=== PATIENT | female | born 1980 | race Caucasian/White ===

== ENCOUNTER 2021-10-28 08:30 | Outpatient (RCR) | payer MEDICAID, SELFPAY ==
--- NOTE | 2021-10-28 11:10 | BH.SGPN.GN ---
This psychotherapy group was provided via telehealth using two-way, real-time interactive telecommunication technology between the patients and the provider. The interactive telecommunication technology included audio and video. The patient was offered telemedicine as an option for care delivery during the COVID-19 pandemic and consented to this option. Patient location: [place]] Provider located at [facility] Behaviors/Verbalizations/Mental Status: [] Client alert and oriented, casually dressed and appropriately groomed. Eye contact fair. Motor activity WNL. Speech within normal limits. Affect congruent, mood anxious and dysthymic. Thoughts linear and intact. no signs of delusions or hallucinations. Client Response/Progress/Benefit: [] Client responded well to session AEB listening attentively to peers and providing some input throughout. Client contributed during psychoeducation on the different boundary styles. Client identified connects most with having rigid emotional boundaries. Participated in group discussion brainstorming various strategies for improving healthy personal boundaries. Client identified wanting to take time for self-reflection so she can rediscover her values which will help her identify most important boundaries to set. Will continue IOP tx to improve emotion regulation, increase healthy coipng skills and prevent decompensation.
--- NOTE | 2021-10-28 12:25 | PCM.BH.PSYEV ---
Psychiatric Evaluation Initial Evaluation Initial Evaluation: Chief Complaint: [] I am trying to get back on track. History of Present Illness: [] The patient is a 41-year-old female with a history of schizoaffective disorder who was referred to the [facility] behavioral health IOP program by her outpatient psychiatric providers. The patient has had worsening symptoms of depression and anxiety for the past 2 months and has been unable to hold a job and has worked 8 different jobs in the past year. The patient last worked early in August at a [employer]. The patient currently lives with her mom and dad and her 16-year-old son in a house. The patient has been for 15 years. The patient states that about a month ago she began to be overwhelmed by work responsibilities and was also very anxious. At that time she was drinking coffee in the morning but also had been drinking an occasional red bull energy drink. After her doctor told her to stop energy drinks her feeling of overwhelming anxiety lessened. She also has some brain fog that is a little better now but has been a problem for a long time. She told her provider she had attention deficit problems and was put on Focalin in early September and this caused the patient also to get severe panic attacks and increased anxiety. The Focalin was stopped but the patient remained anxious and depressed. She had some medication changes made 1 month ago and she feels that this has enabled her to be better able to accomplish her activities of daily living. 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 She says she is feeling better and is planning to start learning the mandolin soon. She admits she was self-medicating with alcohol in the past but she stopped this and has not used any alcohol since 10 days ago. She said her maximum use of alcohol was only 1 tall boy a few times a week. She had been isolating herself and described low energy and low motivation. She was depressed but she states that she is much less depressed now. She denies hopelessness, worthlessness and guilt. She has low energy level and her appetite is okay and her sleep is now okay at 8 hours a night. Her sleep was decreased prior to the medication changes made 1 month ago. Concentration remains somewhat decreased. She denies any history of self-harm. She is a worrier by nature and ruminates negatively. She has been feeling nervous and hypervigilant and does not trust most people. However she denies paranoia. She has not had any panic attacks for 3 weeks now since stopping the energy drinks and being off the Focalin. She has a history of bulimia with purging by emesis but has not done any of this for 20 years. She denies OCD, trauma, PTSD or history of self-harm. She does admit to passive thoughts of about 1 month ago but she denies any passive thoughts of since 1 month ago. She denies also suicidal ideation, plan for suicide, homicidal ideation, hallucinations or delusions. She denies outright manic episodes but says she has been irritable and some mood episodes and has had depression with psychotic features a number of times and she feels this is why she was diagnosed with schizoaffective disorder. Current Psychiatric Medications: [] Effexor XR 225 mg p.o. daily (x1 year); Lamictal 200 mg p.o. every morning and 100 mg p.o. nightly.; BuSpar 15 mg p.o. twice daily; Latuda 120 mg p.o. nightly and 20 mg p.o. every morning (dose increased from 80 mg total 1 month ago). She has been on Latuda for about 10 years total. Past Psychiatric History: [] The patient has 4 prior psychiatric admissions. The first was in 2011 and the most recent episode of her psychiatric admissions was at [facility] in 2019. She had 2 other admissions between these 2. She has 1 suicide attempt in the past in 2019 which was an overdose on trazodone. She has a psychiatric nurse practitioner and a counselor at [place] for 1 9. She was took Effexor for 7 years and then was changed to [place] for 1 year and then went back on Effexor for the past year. [place] she took in the past made her too sleepy and she did not like Paxil either. She does not remember any other meds she was on. She has a history of an eating disorder which was bulimia by purging by emesis and also restricting her food intake and her weight lowest weight was 98 pounds at 5 foot 1 inches tall and she was not diagnosed with anorexia. She has not purged at all in the past 20 years or restricted. Substance Use History: [] She has abused alcohol in the past but has never had withdrawal symptoms or felt she was addicted to alcohol. She was 5 months sober from alcohol last year and then 80 days sober from alcohol and then was self-medicating recently but stopped 10 days ago. She tried drugs in high school but no drug use since except for marijuana. She vapes marijuana daily off and on since high school but has not used any marijuana since the past few weeks when her psychiatric provider told her to stop using it. She smokes cigarettes 1-1/2 pack/day for the past 16 years. She has never been to rehab for anything. Allergies: [] No known allergies Medications: [] She is on her psych medications as dictated above plus Metformin, losartan and amlodipine Past Medical History: [] Hypertension. No other medical issues. She has had no surgeries. She is a 1 para 1 Ab0 female who has one 16-year-old son. She is not on any control as she is abstinent from sexual relations and plans to stay this way. Family Psychiatric History: [] Mother is 68 years old and father is 71 years old and father has COPD. She has a paternal second cousin with severe bipolar disorder. Otherwise no psych issues in the family and no substance abuse issues. No completed completed suicides in the family. Personal/Social History: [] The patient was born and raised in [place] and describes her childhood as okay. Her parents worked a lot but they were loving but not expressive. The patient was youngest child and has a sister 1-year-old her and her brother 6 years older than her and they were and are fairly close. School was good for her and she got good grades and did not have trouble in her classes. She had friends and participated in a lot of activities at school. She graduated high school and attended college where she got a bachelor of arts in communications. She got at age 21 and has one 16-year-old son from this marriage. The marriage lasted for years. She has had a few other serious boyfriends but is abstinent now. 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 The past year she has had a job as it has been hard for her to hold a job due to her worsening mental health symptoms but the symptoms have improved since Latuda was increased 1 month ago. However the patient states that she may be looking to get on disability since she has had so many problems holding a job in the past year. Legal History: [] No arrests. 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 No DUIs. No . Review of Systems: [] Negative except as noted in present illness. Vital Signs: [] Reviewed in nurses notes. Mental Status Examination: [] The patient is a 41-year-old female who is seen by telehealth and appears mildly disheveled and with no make-up but with reasonably good hygiene. She has no psychomotor agitation or retardation. She is cooperative during the interview. Eye contact is good and speech is normal rate and rhythm and fluent with no pressure. Mood is depressed but less depressed than before. Affect is constricted. Thought process is goal-directed and organized. Thought content: There is no evidence of passive thoughts of , suicidal ideation, homicidal ideation, hallucinations, delusions or symptoms of jj. Reality testing is intact. Intelligence is average or above average. Judgment is intact. Insight is good. Impulsivity is low to moderate. Diagnoses: [] 1. Schizoaffective disorder, bipolar type 2. Generalized anxiety disorder 3. Alcohol use disorder (sober x10 days) 4. Marijuana use disorder (sober times several weeks) 5. Primary support and work issues Plan: [] The patient will start the IOP program in behavioral health at [facility] as the structure, support, education, and group therapy will hopefully prevent worsening of the patient's symptoms which might require hospitalization. She felt safe during the interview and if it anytime she does not feel safe she will let us know or go to the emergency room. The risks, options, possible complications and side effects of medications were discussed with the patient and she understands accepts these. The patient does not wish to have any medication changes made as they were changed 1 month ago and she feels that they have improved her symptoms greatly. She agrees to not use any alcohol or marijuana and to stay sober from both of these. In addition she will use very little coffee and no energy drinks ever. No medication changes were made today. The patient will continue to follow-up with her outpatient providers and I will see the patient in follow-up at the IOP program.
--- NOTE | 2021-10-28 12:39 | BH.DR.ITP ---
Initial Treatment Plan Patient Information Visit Information: ADMISSION DATE: EXPECTED LOS: 4-6 weeks Problems/Symptoms Problem #1:: Depression Symptom:: Sadness, low energy, low motivation, anhedonia, decreased concentration, history of passive thoughts of Problem #2:: Anxiety Symptom:: Worry, rumination, avoidance
--- NOTE | 2021-10-29 09:05 | BH.SGPN.GN ---
Behaviors/Verbalizations/Mental Status: [] Eye contact is good. Motor activity is appropriate. Appearance is casual. Speech is Appropriate. Mood is euthymic. Affect is full. Thoughts are linear and logical. No evidence of psychosis. Reviewed daily check in sheet and no reports of suicidal ideations or intent. Client Response/Progress/Benefit: [] Pt participated at times during group discussions. Attentive. Emotion for today is content. This was her first process group so she briefly introduced herself to the other patients. States that she joined [facility] to get on track. Difficulty staying on task lately due to her mental health. Struggling with setting and maintain goals and daily functioning. She was vague on symptomatology however did report long-standing depression and anxiety. Benefited from group support and encouragement. Will continue in [facility] to prevent decompensation, increase healthy coping skills, and improve functioning. Narrative Note: []
--- NOTE | 2021-10-29 10:00 | BH.SGPN.GN ---
Behaviors/Verbalizations/Mental Status: []This psychotherapy group was provided via telehealth using two-way, real-time interactive telecommunication technology between the clients and the provider. The interactive telecommunication technology included audio and video. The client was offered telemedicine as an option for care delivery during the COVID-19 pandemic and consented to this option. Client location: [place] Provider located at [facility] Client alert and oriented, casually dressed and groomed. Eye contact good. Motor activity appropriate. Speech within normal limits. Affect congruent, mood euthymic. Thoughts linear, logical, no signs of hallucinations or delusions. Client Response/Progress/Benefit: []Client responded well to group session AEB listening attentively to others and participating in group discussion. Group members worked together to define and provide personal examples of pitfalls. Client defined pitfalls as wanting to change but feeling like there is no way out. Provided an example of a personal pitfall as not participating in self care. Client participated in experiential activity through telehealth, providing feedback to the group and expressing her feelings as a observer. Client appeared to benefit from increased self awareness of personal pitfalls. Will continue IOP treatment to decrease rumination and increase depression management skills to improve daily functioning. Narrative Note: []
--- NOTE | 2021-10-29 11:15 | BH.SGPN.GN ---
This psychotherapy group was provided via telehealth using two-way, real-time interactive telecommunication technology between the clients and the provider. The interactive telecommunication technology included audio and video. The client was offered telemedicine as an option for care delivery during the COVID-19 pandemic and consented to this option. Client location: [place] Provider located at [facility] Behaviors/Verbalizations/Mental Status: []Client alert and oriented, disheveled appearance. Eye contact good. Motor activity appropriate. Speech within normal limits. Affect congruent, mood dysthymic. Thoughts linear, logical, no signs of hallucinations or delusions. Client Response/Progress/Benefit: []Client receptive of session, engaged throughout AEB client actively listening and contributing to discussion, as well as taking notes. Client completed worksheet identifying personal pitfalls impacting mental health progress. Client identified the following pitfalls: isolation, avoidance, and procrastination. Group learned different coping skills to help manage pitfalls. Client selected avoidance as the pitfall client wants to overcome. Client plans to work on this by setting small goals and using opposite action. Benefited from identifying personal pitfalls and strategies to overcome these pitfalls. First week of IOP tx. Will continue IOP tx to prevent decompensation, gain healthy coping skills, and improve daily functioning impaired by mental health symptoms. Narrative Note: []
--- NOTE | 2021-11-04 09:00 | BH.SGPN.GN ---
Behaviors/Verbalizations/Mental Status: []Client alert and oriented, casually dressed and groomed. Eye contact fair to good. Motor activity appropriate. Speech within normal limits. Affect congruent, mood euthymic. Thoughts linear, logical, no signs of hallucinations or delusions. Reviewed client?s symptom tracker, no risk for suicidal ideation, plan, or intent as of 11/04/21 Client Response/Progress/Benefit: []Client responded well to session, willing to share and actively listening throughout. Client reports feeling hopeful this morning, which she attributes to getting back into more consistent self-care. Discussed cooking more often and spending time with supports. Client shared she has been struggling to do things she enjoys over the past few months and is glad to be getting back into her hobbies, discussing plans to begin playing the mandolin as well. Shared current stressor as challenging self-comparison thoughts since making the decision to apply for disability. Expressed feeling like a disappointment and guilt about not working. Appeared to benefit from supportive feedback and other?s sharing similar experiences. Client progress noted in improved mood and hopefulness in her ability to make progress in tx. Will continue IOP tx to prevent decompensation, continue to promote healthy skill application, as well as increase mood stability. Narrative Note: []This psychotherapy group was provided via telehealth using two-way, real-time interactive telecommunication technology between the patients and the provider. The interactive telecommunication technology included audio and video. The patient was offered telemedicine as an option for care delivery during the COVID-19 pandemic and consented to this option. Patient location: [place] Provider located at [facility]
--- NOTE | 2021-11-04 14:44 | BH.MDN ---
Multi-Disciplinary Note - Note 30-min Individual Time Started:: 11:27 Date: 11/04/21 Purpose of session/treatment goals addressed:: The purpose of this session was to gather information on client's current stressors, symptoms, and treatment goals. Another goal was to build rapport and provide psychoeducation on cycle of depression, identifying pt?s thoughts and behavior patterns contributing to mental health sx. Eye Contact:: Good Motor Activity:: Appropriate Appearance:: Casual Speech:: Appropriate Mood:: Anxious Affect:: Congruent Thoughts:: Linear, Logical, No evidence of hallucinations/delusions noted Staff Interventions:: motivational interviewing, rapport building, treatment planning, goal setting Client Response:: Pt responded well to session, open to meeting with therapist and remained actively engaged throughout. Indicates she had been referred to [facility] services by her outpatient psychiatrist, Rylie Dan at [place] [id number], due to worsening symptoms of depression and anxiety. Pt noted she has been unable to maintain consistent employment due to her mental health sx and has held over 7 different jobs in the past year. Pt discussed often feeling others do not like her or getting overwhelmed in the work environment, resulting in quitting her job rather than addressing the sources of stress. Shared she has always avoided conflict and struggled with independent decision making as a result. 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 Noted this has been a lifelong source of stress and she has compared herself to her siblings for much of her life. Shared an additional stressor as recently making the decision to file for disability following the suggestion of her outpatient psychiatrist. Pt reports struggling with thoughts of inadequacy and feeling as though she is a failure. Acknowledges this is not rationally being true and may ultimately be the healthiest decision in terms of caring for her mental health but is struggling with acceptance. Pt and therapist discussed the cycle of depression and impact of unhealthy thoughts and coping behaviors on depressive sx. Pt able to identify her own unhealthy thought patterns reinforcing depressive sx, as well as identified avoidance, isolation, and substance use as unhealthy coping mechanisms she has used in the past. Discussed importance of thought challenging and pt receptive of homework to create a list of all the potential mental health benefits of applying for disability to remind herself of. Shared she has additional begun breaking her unhealthy coping patterns by reaching out to supports such as her niece and engaging in more activities she enjoys, reporting cooking more meals at home as an example. Additionally reports sobriety from alcohol since IOP admission. Risks/Concerns:: None noted. Pt denies SI/HI, plan, or intent as of this date. Future oriented and protective factors noted Progress Toward Goals/Plan:: Client reports improved mood and increased use of healthy coping skills since beginning IOP tx. Believes current medication has been helpful since decreasing her Focalin rx prior to admission. Discussed wanting to work towards improving her self-acceptance and willingness to actively apply health skills for managing her mental health sx. Expressed wanting to engage in more activities she enjoys and be more engaged within the home environment. Pt will continue IOP tx to reduce depression and isolation, improve self-confidence, and stabilize mood. Time Stopped:: 11:57
--- NOTE | 2021-11-04 15:13 | BH.MTP_ITS ---
Master Treatment Plan - Patient Information Program Physician:: Dr. Emily Shetty Primary Therapist:: SUNSHINE Rubio - Psychiatric Diagnoses Psychiatric Diagnoses:: 1. Schizoaffective disorder, bipolar type. 2. Generalized anxiety disorder. 3. Alcohol use disorder (sober x10 days). 4. Marijuana use disorder (sober times several weeks) Diagnosis Code(s):: F 25.0 - Estimated LOS Estimated LOS (in weeks):: 6 Problem/Goal #1 - Problem/Goal #1 Stated Goal:: Client will learn and utilize 2-3 healthy coping strategies to better manage depressive symptoms as shown by a reduced DSM-5 scores for depression. Description of Barriers: Pt is attending via telehealth and often has technical difficulties, hx of treatment ineffectiveness, reports difficulties trusting others, pt reports low motivation and energy levels which may impede willingness to follow-through with treatment goals Functional Impact: The patient is a 41-year-old female with a history of schizoaffective disorder, anxiety, and depression who was referred to the [facility] behavioral health IOP program by her outpatient psychiatric provider at [place] [address]. The patient has had worsening symptoms of depression and anxiety for the past 2 months. Reports sx have impacted her a bility to hold a job and she has worked 8 different jobs in the past year. Reports plans to file for disability which she is stressed and feels guilty about. 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 Reports at that time she was drinking coffee and energy drinks to maintain her energy and has been struggling with low energy for the past several months. Reports she has stopped energy drink use in the past month. Pt had also been placed on Focalin in early September for ADHD resulting in worsening anxiety and panic attacks, This has since been discontinued and pt reports improved symptomology. Reports she has also struggled with alcohol misuse and has given varying reports of the extent of her use; however, indicates she has not drank since 7 week prior to admission. Primary stressor at this time is pt relationship with her parents whom she is currently living with. Shared feeling she is a disappointment and unable to meet their expectations for her. Expressed this has been an ongoing source of stress throughout her life as she often compares herself to her siblings. At time of admission, pt endorsing low energy and concentration, poor motivation, loss of sense of self, isolation, depression, increased anxiety and rumination, reports hypervigilance and difficulties trusting others, guilt about filing for disability, distorted thinking patterns, and low self-confidence. Goal Relevant Strengths/Supports: Pt reports having a strong support system and reports a desire to improve her mental health. Pt has several protective factors including her son, reports hx of following through with treatment recommendations - Objectives Objective #1 Stated Objective: Client will learn and utilize 2-3 healthy coping strategies to better manage depressive symptoms as shown by a reduced DSM-5 scores for depression. Interventions: Through group and individual sessions, therapist will help client identify triggers and warning signs of depression and emotional dysregulation including emotional, physical, and behavioral changes. Therapist will teach client various coping skills to manage her symptoms and give client tangible resources to use to regulate emotions. Therapist will use cognitive restructurin g techniques and help client gain awareness of negative thoughts that reinforce guilt and depression. Therapist will provide psychoeducation on maintenance cycles and help client learn ways to break unhealthy maintenance cycles. Therapist will help client incorporate behavioral activation and assist client in setting SMART goals. Discharge Criteria: Client will have met this goal when he can report learning and using at least 2 healthy coping skills to manage depressive symptoms. Additionally, client will have met this goal when his depressive symptoms have reduced on the DSM-5 scale. Target Date: 12/09/21 Review Date: 11/25/21 Objective #2 Stated Objective: Client will reduce depression and feelings of apathy by improving engagement in activities she enjoys through accomplishing 1-2 small activity goals daily. Interventions: Through group and individual sessions, client will learn how to set small SMART goals to promote mood stability and encourage her to create daily activity goals. Therapist will teach client the different kinds of self- care as well as the benefits of self-care. Through CBT and MS interventions, therapist will help client problem-solve barriers and identify ways to increase accountability. Discharge Criteria: Client will have accomplished this goal when can report accomplishing at least one small activity goal a day. Target Date: 12/09/21 Review Date: 11/25/21 Problem/Goal #2 - Problem/Goal #2 Stated Goal:: Client will reduce anxiety causing avoidance, increased worry, and rumination while increasing ability to function on daily basis. Description of Barriers: Pt is attending via telehealth and often has technical difficulties, hx of treatment ineffectiveness, reports difficulties trusting others, pt reports low motivation and energy levels which may impede willingness to follow-through with treatment goals Functional Impact: The patient is a 41-year-old female with a history of schizoaffective disorder, anxiety, and depression who was referred to the [facility] behavioral health IOP program by her outpatient psychiatric provider at [place] [address]. The patient has had worsening symptoms of depression and anxiety for the past 2 months. Reports sx have impacted her ability to hold a job and she has worked 8 different jobs in the past year. Reports plans to file for disability which she is stressed and feels guilty about. 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 Reports at that time she was drinking coffee and energy drinks to maintain her energy and has been struggling with low energy for the past several months. Reports she has stopped energy drink use in the past month. Pt had also been placed on Focalin in early September for ADHD resulting in worsening anxiety and panic attacks, This has since been discontinued and pt reports improved symptomology. Reports she has also struggled with alcohol misuse and has given varying reports of the extent of her use; however, indicates she has not drank since 7 week prior to admission. Primary stressor at this time is pt relationship with her parents whom she is currently living with. Shared feeling she is a disappointment and unable to meet their expectations for her. Expressed this has been an ongoing source of stress throughout her life as she often compares herself to her siblings. At time of admission, pt endorsing low energy and concentration, poor motivation, loss of sense of self, isolation, depression, increased anxiety and rumination, reports hypervigilance and difficulties trusting others, guilt about filing for disability, distorted thinking patterns, and low self-confidence. Goal Relevant Strengths/Supports: Pt reports having a strong support system and reports a desire to improve her mental health. Pt has several protective factors including her son, reports hx of following through with treatment recommendations - Objectives Objective #1 Stated Objective: Client will identify 2-3 anxiety/panic triggers and 2 coping skills to use when feeling anxious to manage anxiety as shown by decreasing her DSM-5 scores for anxiety. Interventions: Therapist will provide education on anxiety, avoidance behaviors, and maintenance cycles. Therapist will help client explore personal symptoms and warning signs of anxiety. Therapist will teach client coping skills to improve emotional regulation, mindfulness, and distress tolerance to help client cope with anxiety in the moment. Discharge Criteria: Client will have accomplished this goal when she can identify at least 2 triggers and report using 2 coping skills to manage anxiety. Additionally, client will have accomplished this goal when her DSM-5 scores show a reduction in symptoms. Target Date: 12/09/21 Review Date: 11/25/21 Objective #2 Stated Objective: Client will increase social interactions and learn 2-3 strategies to improve interpersonal effectiveness skills and reduce conflict avoidance. Interventions: Therapist will use cognitive restructuring techniques and help client gain awareness of negative thoughts that reinforce avoidance behaviors and fear of judgement. Therapist will help client incorporate mindfulness, opposite action, and self-talk strategies to manage anxiety. Discharge Criteria: Pt will report reduced conflict avoidance and improved communication with supports when feeling anxious. Target Date: 12/09/21 Review Date: 11/25/21
--- NOTE | 2021-11-04 15:13 | BH.PSA ---
Source of Information - Presenting Problems/Circumstances Problems, Referral Source, Mental Status, Client: The patient is a 41-year-old female with a history of schizoaffective disorder, anxiety, and depression who was referred to the [facility] program by her outpatient psychiatric provider at [place] [address]. The patient has had worsening symptoms of depression and anxiety for the past 2 months. Reports sx have impacted her ability to hold a job and she has worked 8 different jobs in the past year. Psychiatric Presentation - Psych Issues & Need for Admission Psychiatric Issues:: Anxiety, panic, depression, mood swings, substance misuse, hx of schizoaffective disorder Past Psychiatric History - Treatment Hx Treatment History: The patient has 4 prior psychiatric admissions. The first was in 2011 and the most recent episode of her psychiatric admissions was at [facility] in 2019. She had 2 other admissions between these 2. She has 1 suicide attempt in the past in 2019 which was an overdose on trazodone. She has a psychiatric nurse practitioner and a counselor at [place] [address]. Suicide Assessment Interpretive Summary - Interpretive Summary Interpretive Summary: The patient is a 41-year-old female with a history of schizoaffective disorder, anxiety, and depression who was referred to the [facility] program by her outpatient psychiatric provider at [place] [address]. The patient has had worsening symptoms of depression and anxiety for the past 2 months. Reports sx have impacted her ability to hold a job and she has worked 8 different jobs in the past year. Reports plans to file for disability which she is stressed and feels guilty about. 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 Reports at that time she was drinking coffee and energy drinks to maintain her energy and has been struggling with low energy for the past several months. Reports she has stopped energy drink use in the past month. Pt had also been placed on Focalin in early September for ADHD resulting in worsening anxiety and panic attacks, This has since been discontinued and pt reports improved symptomology. Reports she has also struggled with alcohol misuse and has given varying reports of the extent of her use; however, indicates she has not drank since 7 week prior to admission. Primary stressor at this time is pt relationship with her parents whom she is currently living with. Shared feeling she is a disappointment and unable to meet their expectations for her. Expressed this has been an ongoing source of stress throughout her life as she often compares herself to her siblings. At time of admission, pt endorsing low energy and concentration, poor motivation, loss of sense of self, isolation, depression, increased anxiety and rumination, reports hypervigilance and difficulties trusting others, guilt about filing for disability, distorted thinking patterns, and low self-confidence. Treatment Plan Recommendations
--- NOTE | 2021-11-05 09:08 | BH.SGPN.GN ---
This psychotherapy group was provided via telehealth using two-way, real-time interactive telecommunication technology between the clients and the provider. The interactive telecommunication technology included audio and video. The client was offered telemedicine as an option for care delivery during the COVID-19 pandemic and consented to this option. Client location: [place] Provider located at [facility] Behaviors/Verbalizations/Mental Status: []Client alert and oriented, casually dressed and groomed. Eye contact fair. Motor activity appropriate. Speech within normal limits. Affect congruent, mood euthymic. Thoughts linear, logical, no signs of hallucinations or delusions. Reviewed client?s symptom tracker, no risk for suicidal ideation, plan, or intent Client Response/Progress/Benefit: []Client responded well to session, attentive to others. Client stated she a mental health win is being thankful for her individual counseling session yesterday. Client further explained she has hope after her individual session that this program can be helpful to her. Client stated she has hx of dropping out of programs because doesn't think it will help. Client reported feeling hopeful that she will continue this program and that it can benefit her. Client reported no current stressors. Progress noted with client reporting increased engagement. Seemed to benefit from support from peers. Client to continue IOP to increase healthy coping, challenge distorted thoughts and prevent decompensation.
--- NOTE | 2021-11-05 10:05 | BH.SGPN.GN ---
Behaviors/Verbalizations/Mental Status: []Client alert and oriented, casually dressed and groomed. Eye contact good. Motor activity appropriate. Speech within normal limits. Affect congruent, mood euthymic. Thoughts linear, logical, no signs of hallucinations or delusions. This psychotherapy group was provided via telehealth using two-way, real-time interactive telecommunication technology between the clients and the provider. The interactive telecommunication technology included audio and video. The client was offered telemedicine as an option for care delivery during the COVID-19 pandemic and consented to this option. Client location: [place] Provider located at [facility] Client Response/Progress/Benefit: []Client responded well to session AEB listening attentively to others. Client was a passive participant in group discussion regarding myths of self care including self care is selfish, has to be pampering, and is too expensive. Client took notes and nodded throughout group discussion of the benefits of self care and the barriers that can make practicing it difficult. Client participated in experiential activity illustrating the importance of utilizing self care remotely via telehealth. Appeared to benefit from increased knowledge of self care strategies and the importance of self care. Client?s engagement is variable which may hinder progress. Will continue IOP treatment to prevent decompensation and decrease rumination to improve daily functioning. Narrative Note: []
--- NOTE | 2021-11-05 11:16 | BH.SGPN.GN ---
Behaviors/Verbalizations/Mental Status: []Client alert and oriented, casually dressed and groomed. Eye contact good. Motor activity appropriate. Speech within normal limits., limited input provided however. Affect congruent, mood euthymic and anxious. Thoughts linear, logical, no signs of hallucinations or delusions. Client Response/Progress/Benefit: []Client engaged participant AEB taking notes and nodding throughout, limited input provided. Attentive during group discussion on the various areas of self-care and made connections with the activity. Client completed worksheet which identified current self-care practices and what self-care activities client wants to start using. Client shared currently doing well in self-care areas of psychological self-care, noting getting back into hobbies she enjoys. Client selected physical and emotional self-care as the areas of self-care client would like to improve. Noted she could do so by learning healthier emotion regulation skills and continuing to work on maintaining sobriety from alcohol. Appeared to benefit from completing the self-care evaluation and gaining insights into current self-care practices, as well as identifying areas in which she would like to improve upon. Will continue IOP tx to increase application of healthy coping skills, further improve mood stability, as well as prevent decompensation. Narrative Note: []This psychotherapy group was provided via telehealth using two-way, real-time interactive telecommunication technology between the patients and the provider. The interactive telecommunication technology included audio and video. The patient was offered telemedicine as an option for care delivery during the COVID-19 pandemic and consented to this option. Patient location: [place] Provider located at [facility]
--- NOTE | 2021-11-06 09:10 | BH.SGPN.GN ---
Behaviors/Verbalizations/Mental Status: [] Eye contact is good. Motor activity is appropriate. Appearance is casual. Speech is Appropriate. Mood is euthymic. Affect is full. Thoughts are linear and logical. No evidence of psychosis. Reviewed daily check in sheet and no reports of suicidal ideations or intent. Client Response/Progress/Benefit: [] Pt was an active participant in group discussion on managing triggers. Attentive. Provided appropriate feedback. Emotion for today is calm. Mental health wins included cooking this AM. Her goal this weekend is not to drink to cope with emotions or to escape. Shared some of her strategies and was open to feedback from peer. She reports that she is trying to be more honest with herself and others regarding her struggles and alcohol use. In the past she would often use unhealthy coping which was never beneficial. She also shared improving her social network and setting boundaries with unhealthy support. Progress noted. Will continue in IOP to prevent decompensation and increase healthy coping skills. Narrative Note: []
--- NOTE | 2021-11-06 10:15 | BH.SGPN.GN ---
This psychotherapy group was provided via telehealth using two-way, real-time interactive telecommunication technology between the clients and the provider. The interactive telecommunication technology included audio and video. The client was offered telemedicine as an option for care delivery during the COVID-19 pandemic and consented to this option. Client location: [place] Provider located at [facility] Behaviors/Verbalizations/Mental Status: []Client alert and oriented, casually dressed and groomed. Eye contact good. Motor activity appropriate. Speech within normal limits. Affect congruent, mood euthymic. Thoughts linear, logical, no signs of hallucinations or delusions. Client Response/Progress/Benefit: []Pt was an active participant in group discussion and experiential activity. Attentive during psychoeducation. Group had an interactive discussion on the benefits of emotional regulation in which pt provided insight. Group identified several benefits to emotional regulation which included; less consequences, more stable relationships, improved communication, and better ability to manage stress. Group also was able to identify how emotions can impact our communication leading to; difficulty articulating our thoughts, shutting down, not being an active listener, mind-reading, and getting defensive. Pt participated in experiential activity and reported it was challenging to overcome the communication barriers, but ?I just went with the flow.? Benefited from increased awareness into how emotions can impact one's ability to effectively communicate. Will continue IOP tx to improve overall functioning, reduce negative thinking patterns, and work towards consistent mood stability. Narrative Note: []
--- NOTE | 2021-11-06 11:15 | BH.SGPN.GN ---
This psychotherapy group was provided via telehealth using two-way, real-time interactive telecommunication technology between the clients and the provider. The interactive telecommunication technology included audio and video. The client was offered telemedicine as an option for care delivery during the COVID-19 pandemic and consented to this option. Client location: [place] Provider located at [facility] Behaviors/Verbalizations/Mental Status: []Client alert and oriented, casually dressed and groomed. Eye contact good. Motor activity appropriate. Speech within normal limits. Affect constricted, mood dysthymic. Thoughts linear, logical, no signs of hallucinations or delusions. Client Response/Progress/Benefit: []Pt engaged in session AEB client listening attentively to peers and providing input. Attentive during psychoeducation on 4 zones of regulation. Pt able to identify feelings and behaviors for each zone. Pt identified coping skills one can use to support self in each zone. Pt stated belief that she is in the blue/green zone today as pt feels stuck and somewhat isolated. Pt stated she wants to work on getting out of the blue zone today by reaching out to a support and stepping outside for fresh air today. Benefited from increased education on zones of regulation or stages of alertness for emotions and healthy coping skills to use for each zone. Pt will continue IOP tx prevent decompensation, improve daily functioning, and reduce negative thinking patterns. Narrative Note: []
--- NOTE | 2021-11-10 09:00 | BH.SGPN.GN ---
This psychotherapy group was provided via telehealth using two-way, real-time interactive telecommunication technology between the clients and the provider. The interactive telecommunication technology included audio and video. The client was offered telemedicine as an option for care delivery during the COVID-19 pandemic and consented to this option. Client location: [place] Provider located at [facility] Behaviors/Verbalizations/Mental Status: []Client alert and oriented, casually dressed and groomed. Eye contact good. Motor activity appropriate. Speech within normal limits. Affect flat, mood anxious and dysthymic. Thoughts linear, logical, no signs of hallucinations or delusions. Reviewed client?s symptom tracker, no risk for suicidal ideation, plan, or intent as of 11/10/21 Client Response/Progress/Benefit: []Client responded well to session, attentive. Client reports feeling anxious this morning and shared that she did not want to come to IOP today due to not feeling well mentally and physically. Client shared showing up for group is her mental health win. Client reports that she has been isolating and ruminating more often due to house sitting. Client received support and ideas for coping with ruminations from peers. Client shared she is going to try and watch TV later to distract herself. The group also encouraged client to go outside, talk to supports, and practice self-talk. Appeared to benefit from group support and advice. Will continue IOP tx to prevent decompensation, improve daily functioning, and gain healthy coping skills. Narrative Note: []
--- NOTE | 2021-11-10 11:32 | BH.COMM ---
Communication Note - Communication with Client Communication Note: Pt scheduled for group on this date and attended the process group session via telehealth; however, was disconnected due to technical issues. Pt did not sign back on when connection was re-established. Therapist contacted pt to follow-up and check-in regarding pt reports of struggling with increased anxiety this morning. Pt discussed rumination about not working and struggling to accept her decision to apply for disability. Noted she has been drinking more alcohol to cope than she had initially disclosed and believes this is impeding her ability to fully engage in the IOP program. Expressed beliefs she may need substance use counseling and would like to focus primarily on this area of treatment. Further expressed feeling overwhelmed in the group setting and beliefs that she would benefit more from individual mental health counseling at the time. Pt is connected with [id number] for ongoing individual counseling and psychiatry services. Was provided via email with a list of referral options for pursuing outpatient substance use treatment as well.
--- NOTE | 2021-11-11 08:48 | BH.DS_ITS ---
Discharge Summary - Demographics Date of Admission:: 10/28/21 Discharge Date: 11/10/21 Presenting Problems at Admission:: The patient is a 41-year-old female with a history of schizoaffective disorder, anxiety, and depression who was referred to the [facility] behavioral health [facility] program by her outpatient psychiatric provider at [place] [address]. The patient has had worsening symptoms of depression and anxiety for the past 2 months. Reports sx have impacted her ability to hold a job and she has worked 8 different jobs in the past year. Reports plans to file for disability which she is stressed and feels guilty about. The patient last worked early in August at a [employer] but quit due to feeling overwhelmed and under supported. Reports at that time she was drinking coffee and energy drinks to maintain her energy and has been struggling with low energy for the past several months. Reports she has stopped energy drink use in the past month. Pt had also been placed on Focalin in early September for ADHD resulting in worsening anxiety and panic attacks, This has since been discontinued and pt reports improved symptomology. Reports she has also struggled with alcohol misuse and has given varying reports of the extent of her use; however, indicates she has not drank since 7 week prior to admission. Primary stressor at this time is pt relationship with her parents whom she is currently living with. Shared feeling she is a disappointment and unable to meet their expectations for her. Expressed this has been an ongoing source of stress throughout her life as she often compares herself to her siblings. At time of admission, pt endorsing low energy and concentration, poor motivation, loss of sense of self, isolation, depression, increased anxiety and rumination, reports hypervigilance and difficulties trusting others, guilt about filing for disability, distorted thinking patterns, and low self-confidence. Discharge Diagnoses:: 1. Schizoaffective disorder, bipolar type. 2. Generalized anxiety disorder. 3. Alcohol use disorder (sober x10 days). 4. Marijuana use disorder (sober times several weeks) Reason for Discharge:: Therapist spoke with client who requested to be discharged from [facility] due to client's difficulties with consistent attendance, desire to see more substance specific treatment, and indicating beliefs that individual counseling would be a more appropriate fit for her at this time. Given client reported difficulties in managing current alcohol use, therapist is in agreement for client to discharge from [facility] tx to seek substance specific counseling services. Client was provided with several treatment options in her area. - Treatment Progress During Treatment & Response: Limited progress due to client voluntarily discharging for IOP tx after four days of treatment to seek substance specific services. Client unable to accomplish her treatment goals due to not finishing the program. Issues Still to be Addressed:: Client can benefit from learning coping skills to manage anxiety and depression, increase healthy coping skills, reduce guilt, and learn how to challenge negative thinking. Client recently reported increased alcohol use impeding her ability to focus on mental health treatment at this time, which was the reason she stopped IOP tx. There is a concern that client's mental health will continue to decompensate if client does not take time to address her co-occurring substance-use and mental health symptoms. Discharge Recommendations/Instructions:: Client was encouraged to establish outpatient substance specific counseling services and was provided with several referral options prior to discharge. Client additionally encouraged to continue individual outpatient counseling and medication management with established providers at [place] [address]. Discharge Handout: Complete Discharge Handout with client on aftercare options and continuity of care.
== END 2021-11-10 12:23 | disposition home or self-care (01) ==
LOC: BHIOP 08:30
PROVIDERS: Referring Provider Psychiatry & Neurology Psychiatry; Visit Provider Psychiatry & Neurology Psychiatry
DX: F25.0 Schizoaffective disorder, bipolar type (principal); F41.8 Other specified anxiety disorders; Z72.89 Other problems related to lifestyle; F12.90 Cannabis use, unspecified, uncomplicated; Z79.899 Other long term (current) drug therapy
CPT/HCPCS: 90792; H2012; H2020; S9480; 90832